=== PATIENT | female | born 1985 ===

== ENCOUNTER 2017-10-31 06:53 | Inpatient (IN) | payer OTHER ==
[~2017-10-31] VITALS: Ht 167.6 cm; Wt 2.7 kg
[~2017-10-31 06:53] MED LIST: NAPROXEN SODIU550 MG PO; ZANTAC150 MG PO; ZOFRAN4 MG PO
== END 2017-11-02 14:06 | DRG 766 ==
LOC: LDR 06:53 → O/R 08:00 → OB/GYN 10:29
PROVIDERS: Specialist
PROC: 0UB50ZZ Excision of Right Fallopian Tube, Open Approach (ICD-10-PCS; 2017-10-31)
PROC: 4A1HXCZ Monitoring of Products of Conception, Cardiac Rate, External Approach (ICD-10-PCS; 2017-10-31)
PROC: 10D00Z1 Extraction of Products of Conception, Low, Open Approach (ICD-10-PCS; principal; 2017-10-31 07:00)
DX: O82 Encounter for cesarean delivery without indication (principal); Z3A.38 38 weeks gestation of pregnancy; Z37.0 Single live birth; Z30.2 Encounter for sterilization

== ENCOUNTER 2017-11-03 15:21 | Inpatient (IN) | payer OTHER ==
[~2017-11-03] VITALS: Ht 167.6 cm; Wt 88.0 kg
[2017-11-05] MEDS ORDERED: PRENATAL 19 TA1 EAC1 (09:50)
== END 2017-11-05 12:01 | disposition home or self-care (01) | DRG 776 ==
LOC: OB/GYN 15:21
DX: O86.4 Pyrexia of unknown origin following delivery (principal)